=== PATIENT | female | born 1945 | race Caucasian/White ===

== ENCOUNTER 2017-06-21 14:54 | Outpatient (CLI) | payer BC, MEDICARE ==
[2017-06-21 15:30] LABS: ALT (SGPT) 20 U/L (8-55); AST (SGOT) 18 U/L (5-34); Albumin 4.3 g/dL (3.4-4.8); Alkaline Phosphatase 65 U/L (40-150); Anion Gap 13 mmol/L (10-20); BUN (Urea Nitrogen) 17 mg/dL (9.8-20.1); Calc. Creatinine Clearance 0 mL/min (70-130); Calcium 9.7 mg/dL (7.8-10.44); Carbon Dioxide 27 mmol/L (23-31); Chloride 105 mmol/L (98-107); Estimated GFR-MDRD 51; Globulin 2.8 g/dL (2.4-3.5); Glucose 88 mg/dL (83-110); Potassium 3.9 mmol/L (3.5-5.1); Protein, Total 7.1 g/dL (6.0-8.3); Sodium 141 mmol/L (136-145)
[2017-06-21 15:31] LABS: Bilirubin Negative (Negative); Blood, Urine Negative (Negative); Clarity Clear (Clear); Glucose, Urine (Dipstick) Negative (Negative); Leukocyte Negative (Negative); Nitrite Negative (Negative); Protein, Urine (Dipstick) Trace mg/dL (Neg-Trace); Specific Gravity, Urine 1.022 (1.002-1.036)
[2017-06-21 15:32] LABS: RBC/HPF 0-3 HPF (0-3)
[2017-06-21 15:59] LABS: #Basophils 0.1 thou/uL (0.0-0.2); #Eosinphils 0.2 thou/uL (0.0-0.7); #Monocytes 0.5 thou/uL (0.11-0.59); #Neutrophils 2.4 thou/uL (1.40-6.50); %Basophils 1.8 % (0.0-1.0); %Eosinophils 3.2 % (0.0-10.0); %Lymphocytes 39.1 % (21.0-51.0); %Monocytes 9.5 % (0.0-10.0); %Neutrophils 46.4 % (42.0-75.0); Hemoglobin 13.1 g/dL (12.0-16.0); Mean Corpuscular HGB CONC 32.6 g/dL (32.0-36.0); Mean Corpuscular Hemoglobin 31.2 pg (27.0-31.0); Mean Corpuscular Volume 95.9 fl (81.0-99.0); Mean Platelet Volume 6.2 fL (7.4-10.4); Platelet Count 254 thou/uL (130-400); RBC Distribution Width 11.5 % (11.5-14.5); Red Blood Cell (RBC) Count 4.19 mill/uL (4.20-5.40); White Blood Cell (WBC) Count 5.2 thou/uL (4.8-10.8)
== END 2017-06-21 14:55 | disposition home or self-care (01) ==
LOC: MADLABBHPM 14:54
PROVIDERS: ATTEND Family Medicine
DX: I10 Essential (primary) hypertension (principal)
CPT/HCPCS: 36415; 80053; 81001; 84443; 85025

== ENCOUNTER 2018-06-13 13:08 | Outpatient (CLI) | payer MEDICARE ==
--- NOTE | 2018-06-13 14:13 | ULT ---
ULTRASOUND LEFT ARM: Date: 06-13-18 History: 72-year-old female with palpable mass in upper left arm. FINDINGS: Focused ultrasound images of the area of palpable lump at the posterior aspect of the left upper arm demonstrate no evidence of solid or cystic mass. IMPRESSION: 1. Negative ultrasound of the arm. 2. Consider CT (preferably with IV contrast) or MRI (preferably with and without contrast), unless th ere are contraindications. POS: [facility]
== END 2018-06-13 13:09 | disposition home or self-care (01) ==
LOC: MADULT 13:08
PROVIDERS: ATTEND Family Medicine
DX: M79.9 Soft tissue disorder, unspecified (principal)
CPT/HCPCS: 76999

== ENCOUNTER 2024-03-23 10:07 | Emergency (ER) | payer MEDICARE ==
[2024-03-23] MEDS ORDERED: traMADol HCl 50 MG TAB ONE (10:23)
[2024-03-23] MEDS ORDERED: Ondansetron ODT 4 MG TAB ONE (10:35)
== END 2024-03-23 11:07 | disposition home or self-care (01) ==
LOC: MADERS 10:07
DX: S52.571A Other intraarticular fracture of lower end of right radius, initial encounter for closed fracture (principal); I10 Essential (primary) hypertension; Z79.899 Other long term (current) drug therapy; W20.8XXA Other cause of strike by thrown, projected or falling object, initial encounter
CPT/HCPCS: 29125; Q0162

== ENCOUNTER 2024-07-20 10:11 | Emergency (ER) | payer MEDICARE | END 2024-07-20 12:43 | disposition home or self-care (01) | LOC: MADERS 10:11 | DX: S52.101A Unspecified fracture of upper end of right radius, initial encounter for closed fracture (principal); I10 Essential (primary) hypertension; W19.XXXA Unspecified fall, initial encounter | CPT/HCPCS: 29105 ==